=== PATIENT | male | born 1985 | race Caucasian/White ===

== ENCOUNTER 2017-12-21 23:48 | Emergency (ER) | payer BC ==
[~2017-12-21] VITALS: Ht 185.4 cm; Wt 96.0 kg
[~2017-12-21 23:48] MED LIST: ATEN25TA PO; LORA-392 PO; PRED20 PO; VENTAER INH
[2017-12-21 23:57] VITALS: BP 135/61; PULSE 70; RESP 20; TEMP 98.5; O2SAT 98
[2017-12-22 00:33] VITALS: BP 135/73; PULSE 66; RESP 16; O2SAT 97
[2017-12-22] MEDS ORDERED: ATEN25TA PO (00:42)
[2017-12-22 01:38] VITALS: O2SAT 98
[2017-12-22 01:58] VITALS: BP 121/74; PULSE 58; RESP 16; O2SAT 96
[2017-12-22 02:12] LABS: AUTOMATED NEUTROPHIL # 3.9 TH/MM3 (1.8-7.7); BASOPHIL # 0.1 TH/MM3 (0-0.2); BASOPHIL % 0.9 % (0.0-2.0); EOSINOPHIL # 0.5 TH/MM3 (0-0.4); EOSINOPHIL % 6.2 % (0.0-4.0); HEMATOCRIT 44.9 % (39.0-51.0); HEMOGLOBIN 15.1 GM/DL (13.0-17.0); LYMPH % 35.9 % (9.0-44.0); LYMPHOCYTE # 2.9 TH/MM3 (1.0-4.8); MEAN CELL VOLUME 81.3 FL (80.0-100.0); MEAN CORPUSCULAR HEMOGLOBIN 27.3 PG (27.0-34.0); MEAN CORPUSCULAR HGB CONC 33.5 % (32.0-36.0); MEAN PLATELET VOLUME 6.6 FL (7.0-11.0); MONO % 7.1 % (0.0-8.0); MONOCYTE # 0.6 TH/MM3 (0-0.9); NEUT % 49.9 % (16.0-70.0); PLATELET COUNT 249 TH/MM3 (150-450); RED BLOOD COUNT 5.52 MIL/MM3 (4.50-5.90); RED CELL DISTRIBUTION WIDTH 12.9 % (11.6-17.2)
[2017-12-22 02:13] LABS: CHLORIDE 104 MEQ/L (98-107); SODIUM (NA) 139 MEQ/L (136-145)
--- NOTE | 2017-12-22 02:14 | RADRPT ---
EXAM DATE/TIME: 12/22/2017 01:34 [place] COMPARISON: CHEST PA & LAT, July 07, 2017, 22:52. INDICATIONS : Chest pain. MEDICAL HISTORY : None. SURGICAL HISTORY : None. ENCOUNTER: Initial ACUITY: 4 - 6 days PAIN SCORE: 5/10 LOCATION: Bilateral chest FINDINGS: PA and lateral views of the chest demonstrate the lungs to be symmetrically aerated without evidence of mass, infiltrate or effusion. The cardiomediastinal contours are unremarkable. Osseous structure s are intact. CONCLUSION: 1. No acute cardiopulmonary disease. Lui Vences MD on December 22, 2017 at 2:13 Board Certified Radiologist. This report was verified electronically.
[2017-12-22 02:15] LABS: CALCIUM 8.2 MG/DL (8.5-10.1)
[2017-12-22 02:16] LABS: BICARBONATE 27.3 MEQ/L (21.0-32.0); BLOOD UREA NITROGEN 14 MG/DL (7-18); GLUCOSE,RANDOM 92 MG/DL (74-106)
[2017-12-22 02:19] LABS: CREATININE 0.91 MG/DL (0.60-1.30); GLOMERULAR FILTRATION RATE 96 ML/MIN (>89)
[2017-12-22 02:24] LABS: TROPONIN I LESS THAN 0.02 NG/ML (0.02-0.05)
[2017-12-22] MEDS ORDERED: IBUP1TAB7 PO (02:34)
--- NOTE | 2017-12-22 02:41 | PD ---
HPI Chief Complaint: Chest Pain Time Seen by Provider: 02:28 Travel History International Travel<30 days: No Contact w/Intl Traveler<30days: No Traveled to known affect area: No History of Present Illness HPI The patient is a 32-year-old male with no known history of heart disease who complains of a sharp sternal pain which is also tight feeling with a level of 8/ 10 for 1 week. The patient denies any shortness of breath, tachycardic, syncopal or near syncopal spells. 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 He is physically very active. He does not smoke. He denies any diaphoresis, nausea, vomiting or diarrhea. PFSH Past Medical History Anxiety: Yes Cardiovascular Problems: Yes (LEFT VENTICULAR HYPERTROPHY, HEART MURMER, palpitations) Diminished Hearing: No Tetanus Vaccination: Unknown Influenza Vaccination: No ?: Not Social History Alcohol Use: No Tobacco Use: Yes (Dip 1/2 can /day) Substance Use: No Allergies-Medications (Allergen,Severity, Reaction): Coded Allergies: No Known Allergies (Verified Allergy, Unknown, 12/22/17) Reported Meds & Prescriptions Reported Meds & Active Scripts Active Ibuprofen 800 Mg Tab 800 Mg PO TID Reported Atenolol 25 Mg Tab 12.5 Mg PO EVERY OTHER DAY Review of Systems Except as stated in HPI: all other systems reviewed are Neg Physical Exam Narrative GENERAL: The patient is alert, oriented 3 in minimal apparent distress with his midsternal discomfort. His vital signs are normal. The patient has good musculature and appears well developed. SKIN: Focused skin assessment warm/dry. HEAD: Atraumatic. Normocephalic. EYES: Pupils equal and round. No scleral icterus. No injection or drainage. ENT: No nasal bleeding or discharge. Mucous membranes pink and moist. NECK: Trachea midline. No JVD. CARDIOVASCULAR: Regular rate and rhythm. No murmur appreciated. I can completely reproduce the patient's pain by pressing on the midsternal area at one spot. RESPIRATORY: No accessory muscle use. Clear to auscultation. Breath sounds equal bilaterally. GASTROINTESTINAL: Abdomen soft, non-tender, nondistended. Hepatic and splenic margins not palpable. MUSCULOSKELETAL: No obvious deformities. No clubbing. No cyanosis. No edema. NEUROLOGICAL: Awake and alert. No obvious cranial nerve deficits. Motor grossly within normal limits. Normal speech. PSYCHIATRIC: Appropriate mood and affect; insight and judgment normal. Data Data Last Documented VS Vital Signs Date Time Temp Pulse Resp B/P (MAP) Pulse Ox O2 Delivery O2 Flow Rate FiO2 12/22/17 01:58 58 16 121/74 (90) 96 Room Air 12/21/17 23:57 98.5 Orders Orders Electrocardiogram (12/22/17 01:19) Complete Blood Count With Diff (12/22/17 01:23) Basic Metabolic Panel (Bmp) (12/22/17 01:23) Ckmb (Isoenzyme) Profile (12/22/17 01:23) Troponin I (12/22/17 01:23) Iv Access Insert/Monitor (12/22/17 01:23) Ecg Monitoring (12/22/17 01:23) Oximetry (12/22/17 01:23) Chest, Pa & Lat (12/22/17 ) CKMB (12/22/17 01:47) CKMB% (12/22/17 01:47) Labs Laboratory Tests Test 12/22/17 01:47 White Blood Count 8.0 TH/MM3 Red Blood Count 5.52 MIL/MM3 Hemoglobin 15.1 GM/DL Hematocrit 44.9 % Mean Corpuscular Volume 81.3 FL Mean Corpuscular Hemoglobin 27.3 PG Mean Corpuscular Hemoglobin Concent 33.5 % Red Cell Distribution Width 12.9 % Platelet Count 249 TH/MM3 Mean Platelet Volume 6.6 FL Neutrophils (%) (Auto) 49.9 % Lymphocytes (%) (Auto) 35.9 % Monocytes (%) (Auto) 7.1 % Eosinophils (%) (Auto) 6.2 % Basophils (%) (Auto) 0.9 % Neutrophils # (Auto) 3.9 TH/MM3 Lymphocytes # (Auto) 2.9 TH/MM3 Monocytes # (Auto) 0.6 TH/MM3 Eosinophils # (Auto) 0.5 TH/MM3 Basophils # (Auto) 0.1 TH/MM3 CBC Comment DIFF FINAL Differential Comment Blood Urea Nitrogen 14 MG/DL Creatinine 0.91 MG/DL Random Glucose 92 MG/DL Calcium Level 8.2 MG/DL Sodium Level 139 MEQ/L Potassium Level 3.8 MEQ/L Chloride Level 104 MEQ/L Carbon Dioxide Level 27.3 MEQ/L Anion Gap 8 MEQ/L Estimat Glomerular Filtration Rate 96 ML/MIN Total Creatine Kinase 217 U/L Creatine Kinase MB 4.3 NG/ML Troponin I LESS THAN 0.02 NG/ML MDM Medical Decision Making Medical Screen Exam Complete: Yes Emergency Medical Condition: Yes Medical Record Reviewed: Yes Interpretation(s) The EKG shows sinus rhythm with a rate of 64 and is completely normal. The CBC is normal. The troponin I is normal. The calcium is 8.2 but the rest of the basic metabolic profile is normal. The percentage CK-MB is normal. Differential Diagnosis Musculoskeletal pain, acute coronary syndrome-extremely likely, lumbar embolus- extremely unlikely, pneumonia, highly unlikely Narrative Course The patient has musculoskeletal pain. Diagnosis Primary Impression: Chest wall pain Additional Instructions: Take Motrin regularly, 1 tablet 3 times daily. Usually in 4-5 days the pain subsides. Follow-up with your primary care physician. Scripts Ibuprofen (Ibuprofen) 800 Mg Tab 800 MG PO TID, #44 TAB 0 Refills Prov: Shivam Ortiz MD 12/22/17 Disposition: DISCHARGE HOME Condition: Stable Shivam Ortiz MD Dec 22, 2017 02:41
[2017-12-22 03:07] VITALS: BP 127/77; TEMP 98.4
--- NOTE | 2017-12-22 11:30 | EKG ---
Date Performed: 12/22/2017 Time Performed: 01:27:19 PTAGE: 32 years EKG: Sinus rhythm NORMAL ECG PREVIOUS TRACING : 06/07/2015 20.58 Since the prior tracing, there has been no significant hussein DOCTOR: Helio Galindo Interpretating Date/Time 12/22/2017 11:27:34
== END 2017-12-22 03:08 | disposition home or self-care (01) ==
LOC: PHED 23:48
DX: R07.89 Other chest pain (principal); I51.7 Cardiomegaly; F17.220 Nicotine dependence, chewing tobacco, uncomplicated
CPT/HCPCS: 71046; 80048; 82550; 82552; 84484; 85025; 93005; 99285